=== PATIENT | male | born 1955 | race Caucasian/White ===

== ENCOUNTER 2020-12-14 08:33 | Day surgery (SDC) | payer BC, MEDICARE ==
[2020-12-12 11:36] VITALS: BMI 39.0
[~2020-12-14 08:33] MED LIST: DEXAMETHASONE SOD PHOSPHATE 4 MG/ML 1 ML VIAL IV ONE; HYDROmorphone 0.5 MG/0.5 ML SYRINGE IVP PRN; LACTATED RINGERS 1,000 ML IV SCH; MIDAZOLAM 2 MG/2 ML VIAL IV PRN; ONDANSETRON 4 MG/2 ML VIAL IVP ONE; ceFAZolin 3 GM in SODIUM CHLORIDE 0.9% 100 ML IVPB PRN
[2020-12-14] MEDS ORDERED: LIDOCAINE 1% (10MG/ML) FOR IV START INTRADERMA ONE (09:53)
[2020-12-14 10:05] VITALS: TEMP 98.1
[2020-12-14] MEDS ORDERED: MIDAZOLAM 2 MG/2 ML VIAL ONE (10:06)
[2020-12-14] MEDS ORDERED: KETAMINE 10 MG/ML 20 ML VIAL ONE (10:06)
[2020-12-14] MEDS ORDERED: fentaNYL (PF) 50 MCG/ML 2 ML AMP ONE (10:06)
[2020-12-14 10:10] LABS: Glucose,Whole Blood 98 mg/dL (75-99)
[2020-12-14] MEDS ORDERED: BUPIVACAINE (PF) 0.25% 30 ML VIAL SQ ONE (10:23)
[2020-12-14 11:02] VITALS: RESP 16
[2020-12-14] MEDS ORDERED: HYDROcodone/APAP 5-325MG 1 EACH TAB ONE (11:20)
[2020-12-14] MEDS ORDERED: HYDROcodone/APAP 5-325MG 1 EACH TAB PO ONE (11:20)
--- NOTE | 2020-12-14 11:37 | P.OP ---
Date of Procedure: 12/14/20 Preoperative Diagnosis: Hammertoe second digit left foot Postoperative Diagnosis: Same Procedure(s) Performed: Correction of hammertoe second digit left foot Implants: Size large [employer]alin[employer] implant Anesthesia: MAC Surgeon: Phani Portillo Estimated Blood Loss (ml): 1 Pathology: none sent Condition: stable Disposition: PACU Description of Procedure: The patient was brought into the operative room placed on table supine position. Timeout was taken to confirm correct patient identifiers, correct procedure, and correct site of surgery. When the room was in agreement IV sedation was administered as anesthesia. Then 10 mL of 0.25% Marcaine was injected proximal to the second digit. A well-padded tourniquet was placed on the left ankle. And the left foot was prepped and draped in usual manner. The foot was exsanguinated and the tourniquet inflated to 250 mmHg. Attention was first directed over the dorsal forefoot over the long extensor tendon to the second digit. Small stab incision was made lateral to the long extensor tendon on the blade was advanced medially and sideways deep to the long extensor tendon and once the blade was deep to the tendon was rotated dorsally and the second digit plantarflexed. A palpable release was noted of the extensor tendon. Then a linear incision was made over the proximal interphalangeal joint. The incision was deepened down to the subcutaneous layer careful to identify, avoid, and re tract any neurovascular structures and cauterize any bleeding vessels. Then a transverse capsulotomy was performed at the proximal interphalangeal joint resecting the extensor tendon and collateral ligaments and exposing the joint surfaces. A sagittal saw was used to resect the head of the proximal phalanx done perpendicular to the long access of the shaft. The guidewire for the implant was then used to create a pocket on the proximal phalanx that was removed and then inserted at the base of the middle phalanx and advanced out the distal aspect of the second digit. The bone reamer was then placed over the guidewire and then the cartilage and subchondral bone reamed from the proximal phalangeal base. Both stock layer holes were then overdrilled. The size large implant was then threaded over the guidewire in the middle phalanx and then advanced into the middle phalanx until it was seated properly and oriented in the right direction. Then the proximal stem was aligned with the stock layer hole in the proximal phalanx and then the bony segments were impacted to advance the stem into the proximal phalanx and bring the bony ends together. The impactor was placed over the guidewire and lightly hammered until the bone edges were together. Then the guidewire was advanced through the implant to deployed the arms and then the guidewire removed. Final fluoroscopic imaging showed complete reduction of the arthrodesis site and proper placement of the implant. The wound is irrigated with normal saline. The extensor tendon was reapproximated with 3-0 Vicryl. Subcu closure done with 4-0 Monocryl. Skin closure done with 3-0 nylon. Nonadherent dressing was placed over the incision then a dry sterile dressings applied to the left foot. The tourniquet was released and capillary refill return to all digits on the left foot. The patient tolerated the above procedure and anesthesia well and went to recovery with vital signs stable.
[2020-12-14 11:44] VITALS: BP 129/78; PULSE 98
== END 2020-12-14 12:05 | disposition home or self-care (01) ==
LOC: OR 08:33
PROVIDERS: ATTEND Podiatrist
DX: M20.42 Other hammer toe(s) (acquired), left foot (principal); I10 Essential (primary) hypertension; E78.5 Hyperlipidemia, unspecified; F17.210 Nicotine dependence, cigarettes, uncomplicated; Z79.4 Long term (current) use of insulin; E11.9 Type 2 diabetes mellitus without complications
CPT/HCPCS: 28285; C1713; J2250; J1100; J0690; J2405; J3010

== ENCOUNTER → 2021-01-04 | Outpatient (CLI) | payer BC ==
[2021-01-04 12:44] LABS: African American GFR (CKD) >90 (>60 ml/min/1.73 sqM); Blood Urea Nitrogen 13 mg/dL (9-20); Non-African American GFR(CKD) >90 (>60 ml/min/1.73 sqM)
--- NOTE | 2021-01-04 16:16 | CT ---
EXAMINATION TYPE: CT chest w con DATE OF EXAM: 01/04/2021 COMPARISON: 12/13/2015 HISTORY: Follow up for pulmonary nodules. Patient complaining of shortness of breath. CT DLP: 666.6 mGycm, Automated exposure control for dose reduction was used. CONTRAST: Performed injected with 100ml mL of Isovue 300. TECHNIQUE: Axial images were obtained at 5 mm thick sections. Reconstructed images are reviewed on [employer] computer in the coronal plane. FINDINGS: Portion of the thyroid visualized is normal. There is a 0.9 cm calcification within the posterior medial left lung compatible with granuloma. Ther e is an oval density with transverse dimension 0.6 cm at the left lung base above the diaphragm. This was present previously and stable. Emphysematous changes are present. No enlarged mediastinal or hilar adenopathy is evident. The ascending aorta diameter at the level o f the main pulmonary artery is 3.9 cm. The main pulmonary artery diameter at the bifurcation is 3.[address] sections are obtained through the upper abdomen. Abdomen is essentially unremarkable. IMPRESSIONS: 1. Stable left base lung nodules. Follow-up exam in one year is recommended to confirm stability.
== END | disposition home or self-care (01) ==
LOC: RADCTMAIN 12:04
PROVIDERS: ATTEND Internal Medicine Sleep Medicine
DX: R91.8 Other nonspecific abnormal finding of lung field (principal); R91.1 Solitary pulmonary nodule
CPT/HCPCS: 82565; 84520; 71260; 36415; Q9967